=== PATIENT | female | born 1995 | race Caucasian/White ===

== ENCOUNTER 2016-04-17 11:45 | Day surgery (SDC) | payer OTHER ==
[~2016-04-17] VITALS: Ht 170.2 cm; Wt 98.5 kg
[~2016-04-17 11:45] MED LIST: ASPIR 8181 M1 PO; GLUCOPHAGE1000 MG PO; LOESTRIN PO; PRINIVIL20 MG PO; TRADJENTA5 MG PO
[2016-04-17 12:06] VITALS: BP 137/93
[2016-04-17 14:31] LABS: POINT-OF-CARE METER ID UU14174212
[2016-04-17 15:48] VITALS: BP 152/101
[2016-04-17 16:50] VITALS: BP 158/97
== END 2016-04-17 16:50 | disposition home or self-care (01) ==
LOC: SDC 11:45
PROVIDERS: Surgery Plastic and Reconstructive Surgery
DX: D22.9 Melanocytic nevi, unspecified (principal); I10 Essential (primary) hypertension; E11.9 Type 2 diabetes mellitus without complications
CPT/HCPCS: 82948; 88305; 93005; J0330; J0690; J1100; J2250; J2405; J3010